=== PATIENT | female | born 1990 | race Caucasian/White ===

== ENCOUNTER → 2023-05-04 15:16 | Outpatient (CLI) | payer OTHER, SELFPAY ==
--- NOTE | ~2023-05-04 | US_ITS ---
EXAMINATION: US OB <=14 wk fetus w TV INDICATION: confirmation of viability TECHNIQUE: Sonography of the pelvis was performed by transabdominal and transvaginal techniques. COMPARISON: None. RESULT: Uterus: 9.5 x 5.7 x 6.8 cm. Homogenous myometrium. Intrauterine gestational sac: Single present. Yolk sac: 0.5 cm . Embryo: Single present. [place] rump length: 2.0 cm, corresponding gestational age 8 weeks, 4 days. G estational heart rate: present 190 bpm. Subgestational hematoma: Absent . Right ovary: 2.3 x 1.0 x 2.3 cm. Vascular flow is present. No adnexal mass. Left ovary: 2.5 x 1.3 x 2.5 cm. Vascular flow is present. No adnexal mass. Pelvis free fluid: None. IMPRESSION: Single, live intrauterine gestation. Estimated Gestational Age: 8 weeks, 4 days by crown rump length. LEOPOLDO by ultrasound 12/10/2023. tachycardia, up to 190 bpm. Reviewed, dictated and finalized at location K. AURANT SERVICE MANAGER IMPRESSION: Single, live intrauterine gestation. Estimated Gestational Age: 8 weeks, 4 days by crown rump length. LEOPOLDO by ultras ound 12/10/2023. tachycardia, up to 190 bpm.
== END ==
PROVIDERS: PCP Advanced Practice Midwife; Visit Provider Advanced Practice Midwife
DX: O36.8390 Maternal care for abnormalities of the fetal heart rate or rhythm, unspecified trimester, not applicable or unspecified (principal); O36.80X0 Pregnancy with inconclusive fetal viability, not applicable or unspecified; Z3A.00 Weeks of gestation of pregnancy not specified
CPT/HCPCS: 76801; 76817

== ENCOUNTER → 2023-07-16 08:47 | Outpatient (CLI) | payer OTHER, SELFPAY ==
--- NOTE | ~2023-07-16 | US_ITS ---
EXAMINATION: US OB /maternal detail DATE: 07/16/2023 09:29 INDICATION: survey TECHNIQUE: Multiple obstetric sonographic images performed. FINDINGS: Comparison ultrasound dated 05/04/2023 There is a single living fetus in breech presentation. The placenta is anterior without placenta pre via. Placental margin to 6 cm from the cervix. Cervical length 4 cm. Amniotic fluid volume is subject ively normal. cardiac activity and movement is noted with a heart rate of 156 beats per minute. The following anatomy was identified as normal: 4 chamber heart 3 vessel cord cord insertion kidneys urinary bladder stomach spine diaphragm ventricles cisterna magna cerebellum The following biometric data were obtained: BPD: 43mm corresponds to gestational age 19 weeks 0 days. Head circumference: 163 mm corresponds to gestational age 19 weeks 0 days. Abdominal circumference: 135 mm corresponds to gestational age 19 weeks 0 days. Femur length: 27 mm corresponds to gestational age 18 weeks 2 days. Head circumference to abdominal circumference ratio: 1.2 (normal range for expected gestational age i s 1.09-1.26). Estimated weight: 250 to grams +/- 38 grams using Hadlock method, 29%. IMPRESSION: 1: Single living intrauterine with an estimated gestational age of 19weeks 0days by initial ultrasound measurements, with an EDC of 12/10/2023 in breech presentation. 2. Normal survey. Reviewed, dictated and finalized at location A. ER HELPER IMPRESSION: 1: Single living intrauterine with an estimated gestational age of 19 weeks 0days by initial ultrasound measurements, with an EDC of 12/10/2023 in rudy ech presentation. 2. Normal survey.
== END ==
PROVIDERS: PCP Advanced Practice Midwife; Visit Provider Advanced Practice Midwife
DX: Z36.9 Encounter for antenatal screening, unspecified (principal); Z3A.19 19 weeks gestation of pregnancy
CPT/HCPCS: 76805

== ENCOUNTER 2023-10-21 13:10 | Outpatient (CLI) | payer OTHER, SELFPAY ==
--- NOTE | ~2023-10-21 | US_ITS ---
EXAMINATION: US OB follow up DATE: 10/21/2023 13:47 INDICATION: Size less than dates. Third trimester. TECHNIQUE: Real-time ultrasound of the pelvis was performed. COMPARISON: Ultrasound 07/16/2023, 05/04/23 FINDINGS: There is a single living fetus in breech presentation. The placenta is anterior. The cervical length is 3.4 cm on transabdominal images, which is normal. heart rate is 157 beats per minute (bpm). The amniotic fluid index is 14.1 cm, which is normal. The following biometric data were obtained: Biparietal diameter (BPD): 8.1 cm; head circumference (HC): 31.0 cm; abdominal circumference (AC): 27 .8 cm; femur length (FL): 6.1 cm. These measurements are concordant. Estimated weight is 1894 g +/- 284 g, which correlates with the 19th percentile when 12/10/23 is used as estimated date of delivery. As single measurements, these parameters are each equal to the following estimated gestational ages: BPD: 32 weeks 4 days. HC: 34 weeks 4 days. AC: 31 weeks 6 days. FL: 31 weeks 4 days. estimated gestational age based solely on measurements from this exam is 32 weeks 5 days +/- 2 weeks 2 days. IMPRESSION: 1. Single living fetus in breech presentation. 2. Estimated weight is 1894 g +/- 284 g, which correlates with the 19th percentile when 4 is used as estimated date of delivery. This date was set by ultrasound on 05/04/2023. Reviewed, dictated and finalized at location E. IMPRESSION: 1. Single living fetus in breech presentation. 2. Estimated weight is 1894 g +/- 284 g, which correlates with the 19th percentile when 12/10/23 is used as estimated date of delivery. This date was se t by ultrasound on 05/04/2023.
== END 2023-10-21 13:11 ==
PROVIDERS: PCP Advanced Practice Midwife; Visit Provider Advanced Practice Midwife
DX: O36.5930 Maternal care for other known or suspected poor fetal growth, third trimester, not applicable or unspecified (principal)
CPT/HCPCS: 76816

== ENCOUNTER 2023-11-08 17:03 | Outpatient (CLI) | payer OTHER, SELFPAY ==
[2023-11-08 17:27] VITALS: BP 140/85; PULSE 88
[2023-11-08 17:30] VITALS: BP 131/78; PULSE 80
[2023-11-08 17:31] VITALS: BMI 30.8
[2023-11-08 17:34] LABS: Basophils Percent Auto 0.2 % (0.2-1.2); Eosinophils Absolute Auto 0.1 K/mm3 (0-0.3); Eosinophils Percent Auto 0.6 % (0-4.4); Hematocrit 38.6 % (37.0-47.0); Hemoglobin 13.3 g/dL (12.0-15.0); Immature Granulocyte Absolute 0.14 K/mm3 (0.00-0.031); Immature Granulocyte Percent A 1.3 % (0-0.5); Lymphocytes Absolute Auto 1.47 K/mm3 (0.9-3.2); Lymphocytes Percent Auto 13.8 % (18.3-44.2); Mean Corpuscular HGB Conc 34.5 g/dl (32-36); Mean Corpuscular Hemoglobin 30.8 pg (26-34); Mean Corpuscular Volume 89.4 fl (80-100); Mean Platelet Volume 11.1 fl (7.4-10.4); Monocytes Absolute Auto 0.6 K/mm3 (0.1-0.6); Monocytes Percent Auto 5.5 % (2.6-8.5); Neutrophils Absolute Auto 8.4 K/mm3 (1.3-6.7); Neutrophils Percent Auto 78.6 % (45.5-73.1); Platelet Count Result 156 k/mm3 (150-375); Red Blood Count 4.32 M/mm3 (4.2-5.4); White Blood Count 10.7 K/mm3 (4.5-10.0)
[2023-11-08 17:35] LABS: Appearance Urine Clear (Clear); Bilirubin Urine Negative (Negative); Blood Urine Negative (Negative); Color Urine Yellow (Yellow); Glucose Urine UA Negative (Negative); Ketones Urine Negative (Negative); Leukocyte Esterase Ur Negative LEU/UL (Negative); Nitrate Urine Negative (Negative); Protein Urine Negative (Negative); Specific Grav Ur 1.006 (1.001-1.035); Urobilinogen Urine 0.2 mg/dL (<2.0); pH Urine 7.5 (5.0-9.0)
[2023-11-08 17:41] LABS: Add Urine Microscopic? NO
[2023-11-08 17:43] LABS: Alanine Aminotransferase 22 U/L (6-35); Albumin Level 3.9 g/dL (3.5-5.1); Alkaline Phosphatase 106 U/L (38-126); Anion Gap 8 mmol/L (4-12); Aspartate Amino Transferase 24 U/L (14-36); Bilirubin,Total 0.3 mg/dL (0.2-1.3); Blood Urea Nitrogen 12 mg/dL (7-17); Calcium 9.2 mg/dL (8.4-10.2); Carbon Dioxide 22 mmol/L (22-30); Chloride 106 mmol/L (98-107); Creatinine Urine 20.1 mg/dL; Estimated CRCL calculation 130 ml/min; Estimated Glomerular Filt Rate > 60; Glucose 81 mg/dL (65-110); Potassium 3.9 mmol/L (3.4-5.0); Sodium 136 mmol/L (137-145); Total Protein Urine Random 10 mg/dL
[2023-11-08 17:45] VITALS: BP 118/81; PULSE 81
[2023-11-08 18:00] VITALS: BP 122/85; PULSE 82
[2023-11-08 18:10] VITALS: BP 122/85; PULSE 86
== END 2023-11-08 18:13 | disposition home or self-care (01) ==
LOC: ANHOBOP 17:07 → ANHLDR 17:11
PROVIDERS: PCP Nurse Practitioner Family; Visit Provider Obstetrics & Gynecology Gynecology
DX: O13.9 Gestational [pregnancy-induced] hypertension without significant proteinuria, unspecified trimester (principal); Z3A.00 Weeks of gestation of pregnancy not specified
CPT/HCPCS: 36415; 59025; 80053; 81003; 82570; 84156; 84550; 85025; 99199

== ENCOUNTER 2023-11-09 17:21 | Outpatient (CLI) | payer OTHER, SELFPAY ==
[2023-11-09 17:57] VITALS: BMI 31.0
[2023-11-09 18:17] LABS: Collection Time Urine 24 HOURS
[2023-11-09 18:25] LABS: Patient Weight 169 Lbs; Total Volume 24 Hour Urine 3000 ml
[2023-11-09 18:26] LABS: Total Volume 24 Hour Urine 3000 ml
[2023-11-09 18:34] LABS: Specific Gravity Ur 1.012
[2023-11-09 18:41] LABS: Total Protein Urine 24 Hr 330 mg/24hr (28-141); Total Protein Urine Random 11 mg/dL
[2023-11-09 18:42] LABS: Creatinine Clearance Urine 200.4 ml/min (75-125); Creatinine Urine 49.3 mg/dL
== END 2023-11-09 17:22 | disposition home or self-care (01) ==
LOC: ANHOBOP 17:27
PROVIDERS: PCP Nurse Practitioner Family; Visit Provider Obstetrics & Gynecology Gynecology
DX: Z34.90 Encounter for supervision of normal pregnancy, unspecified, unspecified trimester (principal); Z3A.00 Weeks of gestation of pregnancy not specified
CPT/HCPCS: 81050; 82575; 84156

== ENCOUNTER 2023-11-17 10:22 | Outpatient (RCR) | payer OTHER, SELFPAY ==
[2023-11-11 09:40] VITALS: BP 125/92; PULSE 97
[2023-11-14 10:53] VITALS: BP 123/82; PULSE 88
[2023-11-17 10:58] VITALS: BP 133/87; PULSE 88
== END 2024-01-11 08:27 | disposition home or self-care (01) ==
LOC: ANHOBOP 10:22
PROVIDERS: PCP Nurse Practitioner Family; Visit Provider Obstetrics & Gynecology Gynecology
DX: O14.93 Unspecified pre-eclampsia, third trimester (principal); Z3A.35 35 weeks gestation of pregnancy; O24.419 Gestational diabetes mellitus in pregnancy, unspecified control; Z3A.36 36 weeks gestation of pregnancy
CPT/HCPCS: 59025

== ENCOUNTER 2023-11-20 15:58 | Inpatient (IN) | payer OTHER, SELFPAY ==
[2023-11-20] VITALS (27 sets, daily range): BP systolic 103–138; BP diastolic 58–96; PULSE 71–101; TEMP 36.2–36.8; BMI 30.6
[2023-11-20 17:01] LABS: Basophils Percent Auto 0.2 % (0.2-1.2); Eosinophils Absolute Auto 0.1 K/mm3 (0-0.3); Eosinophils Percent Auto 0.5 % (0-4.4); Hematocrit 38.3 % (37.0-47.0); Hemoglobin 13.4 g/dL (12.0-15.0); Immature Granulocyte Absolute 0.13 K/mm3 (0.00-0.031); Immature Granulocyte Percent A 1.1 % (0-0.5); Immature Platelet Fraction Pct 9.2 % (0.9-11.2); Lymphocytes Absolute Auto 1.46 K/mm3 (0.9-3.2); Lymphocytes Percent Auto 12.6 % (18.3-44.2); Mean Corpuscular Hemoglobin 30.9 pg (26-34); Mean Corpuscular Volume 88.2 fl (80-100); Mean Platelet Volume 12.1 fl (7.4-10.4); Monocytes Absolute Auto 0.8 K/mm3 (0.1-0.6); Monocytes Percent Auto 6.4 % (2.6-8.5); Neutrophils Absolute Auto 9.2 K/mm3 (1.3-6.7); Neutrophils Percent Auto 79.2 % (45.5-73.1); Platelet Count Result 155 k/mm3 (150-375); Red Blood Count 4.34 M/mm3 (4.2-5.4); Red Cell Distribution Width 12.8 % (11.5-14.5); White Blood Count 11.6 K/mm3 (4.5-10.0)
[2023-11-20] MEDS: miSOPROStol 25 MCG TABLET BUCCAL (17:01)
[2023-11-20 17:09] LABS: Alanine Aminotransferase 18 U/L (6-35); Albumin Level 3.9 g/dL (3.5-5.1); Alkaline Phosphatase 111 U/L (38-126); Anion Gap 6 mmol/L (4-12); Aspartate Amino Transferase 19 U/L (14-36); Bilirubin,Total 0.3 mg/dL (0.2-1.3); Blood Urea Nitrogen 14 mg/dL (7-17); Calcium 9.4 mg/dL (8.4-10.2); Carbon Dioxide 21 mmol/L (22-30); Chloride 109 mmol/L (98-107); Estimated CRCL calculation 130 ml/min; Estimated Glomerular Filt Rate > 60; Glucose 84 mg/dL (65-110); Potassium 3.7 mmol/L (3.4-5.0); Sodium 136 mmol/L (137-145); Uric Acid 3.4 mg/dL (2.5-7.5)
[2023-11-20 17:14] LABS: Platelet Estimate Adequate (Adequate); Schistocytes None Seen
--- NOTE | 2023-11-20 17:18 | LDADM ---
This patient, Heavenly Torres, was admitted to Labor/Delivery/Recovery 106 on 11/20/23 at 15:58. Plans for labor, pain management and were discussed with patient. Patient/family oriented to hospital policies and general routines including ID bracelet, bed and alarms, visiting hours, pain management, procedures, bathroom and other care routines, personal items, smoking policy, room service/diet and guest tray routines, infant security routines, and visiting hours. Patient/Family are encouraged to report perceived risks to care and to ask questions if they do not understand what they are told or what they should do. See OBIX for further documentation.
[2023-11-20 17:50] LABS: HIV 1/2 Ab P24 Ag Result Negative (Negative)
[2023-11-20] MEDS: miSOPROStol 25 MCG TABLET 50 MCG BUCCAL (21:12)
[2023-11-20 21:19] LABS: Glucose Point of Care 112 mg/dl (65-105)
[2023-11-21] VITALS (52 sets, daily range): BP systolic 93–147; BP diastolic 58–96; PULSE 63–93; RESP 11–23; TEMP 36.1–36.9; O2SAT 97–100
[2023-11-21] MEDS: miSOPROStol 25 MCG TABLET 50 MCG BUCCAL ×2 (01:23→07:05)
[2023-11-21] MEDS: ACETAMINOPHEN 500 MG TABLET 1000 MG PO ×2 (03:30→10:03)
--- NOTE | 2023-11-21 05:46 | WPDANESEPP ---
Anes - Eval Pre Procedure Procedure: Labor Epidural Date/Time: 11/21/23 05:46 Surgeon: Charlette Preop Diagnosis: Labor Pain Pre Op Diagnosis: IOL Patient Data Age: 33 Gender: F Height: 1.57 m Weight: 76 kg Last Vital Signs Temp 36.4 C 11/21/23 01:22 Pulse 73 11/21/23 05:30 BP 119/75 11/21/23 05:30 O2 Del Method Room Air 11/20/23 17:13 Allergies Allergy/AdvReac Type Severity Reaction Status Date / Time No Known Allergies Allergy Verified 11/20/23 16:56 Home Medications Medication Instructions Recorded Confirmed Type ergocalciferol (vitamin D2) 1,250 See Rx Instructions .Route .COMPLEX 11/15/23 11/17/23 History mcg (50,000 unit) capsule vits no.126-ferrous fum 1 tablet PO DAILY 11/15/23 11/17/23 History 28 mg iron-folic acid 800 mcg tablet (Classic ) aspirin 81 mg capsule 81 mg PO DAILY 11/20/23 11/20/23 History docusate sodium 50 mg capsule 50 mg PO DAILY 11/20/23 11/20/23 History Laboratory Tests 11/20/23 11/20/23 11/20/23 16:51 16:51 21:14 WBC 11.6 H K/mm3 (4.5-10.0) RBC 4.34 M/mm3 (4.2-5.4) Hgb 13.4 g/dL (12.0-15.0) Hct 38.3 % (37.0-47.0) MCV 88.2 fl (80-100) MCH 30.9 pg (26-34) MCHC 35.0 g/dl (32-36) RDW 12.8 % (11.5-14.5) Plt Count 155 k/mm3 (150-375) MPV 12.1 H fl (7.4-10.4) Immature Gran % (Auto) 1.1 H % (0-0.5) Neut % (Auto) 79.2 H % (45.5-73.1) Lymph % (Auto) 12.6 L % (18.3-44.2) [place] % (Auto) 6.4 % (2.6-8.5) Eos % (Auto) 0.5 % (0-4.4) Baso % (Auto) 0.2 % (0.2-1.2) Lymph # (Auto) 1.46 K/mm3 (0.9-3.2) [place] # (Auto) 0.8 H K/mm3 (0.1-0.6) Eos # (Auto) 0.1 K/mm3 (0-0.3) Baso # (Auto) 0.0 K/mm3 (0.0-0.1) Abs Immat Gran (auto) 0.13 H K/mm3 (0.00-0.031) Absolute Neuts (auto) 9.2 H K/mm3 (1.3-6.7) Absolute Nucleated RBC 0.000 K/mm3 (0.0-0.012) Nucleated RBC % 0.0 % (0.0-0.2) Platelet Estimate Adequate (Adequate) % Immature Plt Fraction 9.2 % (0.9-11.2) Schistocytes None seen Sodium 136 L mmol/L (137-145) Potassium 3.7 mmol/L (3.4-5.0) Chloride 109 H mmol/L (98-107) Carbon Dioxide 21 L mmol/L (22-30) Anion Gap 6 mmol/L (4-12) BUN 14 mg/dL (7-17) Creatinine 0.50 L mg/dL (0.7-1.0) Estim Creat Clear Calc 130 ml/min Estimated GFR > 60 (59 - ) Glucose 84 mg/dL (65-110) POC Capillary Glucose 112 H mg/dl (65-105) Uric Acid 3.4 mg/dL Cancelled (2.5-7.5) Calcium 9.4 mg/dL (8.4-10.2) Total Bilirubin 0.3 mg/dL (0.2-1.3) AST 19 U/L (14-36) ALT 18 U/L (6-35) Alkaline Phosphatase 111 U/L (38-126) Total Protein 7.0 g/dL (6.3-8.2) Albumin 3.9 g/dL (3.5-5.1) RPR Pending HIV 1&2 Ab/P24 Ag 4thGn Negative (Negative) Blood Type O Positive Antibody Screen Negative : gestational age (, LEOPOLDO 12/10/23) Patient hx anesthesia problems: none Family hx anesthesia problems: none Results Review: All pre-operative results and documents have been reviewed as part of the pre-operative evaluation. PMFSH Family History Family History Other No pertinent family history Social History Social History Smoking status: Never smoker Substance use: never Do You Feel Safe in your Home?: Yes Lack of Transportation: No Lack of Food: Never True Current Housing: I Do Not Have Housing Concerned About Future Housing: No Difficulty Paying Gas/Electric Bills: No Di
[2023-11-21] MEDS: LACTATED RINGERS 1,000 ML 125 ML IV CONT ×3 (06:36→11:30)
[2023-11-21 06:37] LABS: Glucose Point of Care 83 mg/dl (65-105)
--- NOTE | 2023-11-21 08:15 | PM.IMHP ---
H&P: HPI History of Present Illness Date/Time: 11/21/23 0745 Chief Complaint: Breech presentation Narrative: 33 y.o. Preeclampsia GDMA1 Rubella Non-Immune Review of Systems Review of Systems: All systems reviewed & are unremarkable except as noted in HPI and below PMFSH Family History Family History Other No pertinent family history Social History Social History Smoking status: Never smoker Substance use: never Do You Feel Safe in your Home?: Yes Lack of Transportation: No Lack of Food: Never True Current Housing: I Do Not Have Housing Concerned About Future Housing: No Difficulty Paying Gas/Electric Bills: No Difficulty Paying for Meds: No Currently Unemployed: No Education: Master's Degree or Higher Difficulty w/ Childcare or Family Care: No Spiritual care concerns: No Meds Home Medications and Allergies Home Medications Medication Instructions Recorded Confirmed Type ergocalciferol (vitamin D2) 1,250 See Rx Instructions .Route .COMPLEX 11/15/23 11/17/23 History mcg (50,000 unit) capsule vits no.126-ferrous fum 1 tablet PO DAILY 11/15/23 11/17/23 History 28 mg iron-folic acid 800 mcg tablet (Classic ) aspirin 81 mg capsule 81 mg PO DAILY 11/20/23 11/20/23 History docusate sodium 50 mg capsule 50 mg PO DAILY 11/20/23 11/20/23 History Allergies Allergy/AdvReac Type Severity Reaction Status Date / Time No Known Allergies Allergy Verified 11/20/23 16:56 Vital Signs Vital Signs - 24 hr 11/20/23 16:18 11/20/23 16:30 11/20/23 16:45 Temperature Pulse Rate 101 H 97 90 Blood Pressure 132/90 135/96 H 133/87 Oxygen Delivery 11/20/23 17:00 11/20/23 17:15 11/20/23 17:30 Temperature Pulse Rate 84 92 96 Blood Pressure 133/94 H 138/88 136/92 H Oxygen Delivery 11/20/23 17:45 11/20/23 16:17 11/20/23 18:00 Temperature 98.3 F Pulse Rate 90 83 Blood Pressure 128/94 H 123/84 Oxygen Delivery 11/20/23 18:15 11/20/23 18:30 11/20/23 18:45 Temperature Pulse Rate 89 86 89 Blood Pressure 129/84 121/80 121/73 Oxygen Delivery 11/20/23 19:00 11/20/23 19:15 11/20/23 19:30 Temperature Pulse Rate 84 85 91 Blood Pressure 114/75 126/73 121/74 Oxygen Delivery 11/20/23 19:45 11/20/23 20:00 11/20/23 20:15 Temperature Pulse Rate 86 87 87 Blood Pressure 123/73 110/75 115/77 Oxygen Delivery 11/20/23 20:30 11/20/23 20:45 11/20/23 21:00 Temperature Pulse Rate 92 89 89 Blood Pressure 116/76 118/68 117/79 Oxygen Delivery 11/20/23 21:30 11/20/23 22:00 11/20/23 22:30 Temperature 97.2 F L Pulse Rate 83 80 78 Blood Pressure 121/80 118/81 112/70 Oxygen Delivery 11/20/23 23:00 11/20/23 23:30 11/21/23 00:00 Temperature 97.6 F Pulse Rate 78 71 75 Blood Pressure 110/63 103/58 L 128/91 H Oxygen Delivery 11/21/23 00:30 11/21/23 01:00 11/21/23 01:22 Temperature 97.6 F Pulse Rate 75 78 Blood Pressure 126/86 128/93 H Oxygen Delivery 11/21/23 01:30 11/21/23 02:00 11/21/23 02:30 Temperature Pulse Rate 79 70 81 Blood Pressure 122/86 130/90 123/85 Oxygen Delivery 11/21/23 03:00 11/21/23 03:30 11/21/23 04:00 Temperature Pulse Rate 78 78 75 Blood Pressure 133/92 H 93/58 L 129/86 Oxygen Delivery 11/21/23 04:30 11/21/23 05:00 11/21/23 05:30 Temperature 97.6 F Pulse Rate 82 81 73 Blood Pressure 112/72 115/87 119/75 Oxygen Delivery 11/21/23 06:00 11/21/23 06:30 11/21/23 07:00 Temperature Pulse Rate 72 87 79 Blood Pressure 126/89 117/84 127/80 Oxygen Delivery 11/20/23 16:16 11/20/23 17:13 Temperature 98.3 F Pulse Rate Blood Pressure Oxygen Delivery Room Air Exam Narrative: Adult female, Term Const: General: comfortable and no acute distress HENMT: Mouth: Yes mois
--- NOTE | 2023-11-21 08:22 | WPDOBADMIT ---
Obstetrics - Admit Note Admission Note: record reviewed. No pertinent additions to the history and/or any subsequent changes in the physical findings that are not consistent with the expected course of the were found. Additions to the history and/or subsequent changes in the physical findings follow. Admitted 11/20/23 for IOL due to preeclampsia
--- NOTE | 2023-11-21 08:23 | PM.OBPNLAB ---
Pain Control Date/time seen: 11/21/23 0792 Pain control: tolerating well Comments: CNM called by RN at 0538. RN reports cervix still long/thick. RN stated os was 1cm but she was unable to peel through the internal os. Additional 50mcg Cytotec ordered. Feeling occasional cramping sensation. Sitting upright in bed eating breakfast. Pelvic Exam Comments: SVE performed. Cervix extremely posterior. Unable to palpate external os entirely. Contractions Monitor mode: External Contraction pattern: Irregular Contraction intensity: Mild Status status: Category ll Assessment and Plan Comments: CNM to bedside. Discussed plan of care. SVE performed. Unable to plapate os. Firm presenting part in lower uterine segment. Leopolds maneuver performed. head suspected in LUQ. Limited bedside ultrasound performed. head in LUQ. spine towards maternal right side. +breathing motion observed. Breech presentation discussed with pt and family. Discussed plan of care and recommendation for delivery. Discussed risks, benefits, and expectations. Dr. Ovalles notified.
--- NOTE | 2023-11-21 10:12 | WPDANESEPPF ---
Anes - Initial Pre Proc Eval Date/Time: 11/21/23 10:12 Surgeon: Selene Ovalles MD Pre Op Diagnosis: IOL Patient Data Age: 33 Gender: F Height: 1.57 m Weight: 76 kg Last Vital Signs Temp 36.4 C 11/21/23 05:00 Pulse 85 11/21/23 10:00 BP 147/96 H 11/21/23 10:00 O2 Del Method Room Air 11/20/23 17:13 Allergies Allergy/AdvReac Type Severity Reaction Status Date / Time No Known Allergies Allergy Verified 11/20/23 16:56 Home Medications Medication Instructions Recorded Confirmed Type ergocalciferol (vitamin D2) 1,250 See Rx Instructions .Route .COMPLEX 11/15/23 11/17/23 History mcg (50,000 unit) capsule vits no.126-ferrous fum 1 tablet PO DAILY 11/15/23 11/17/23 History 28 mg iron-folic acid 800 mcg tablet (Classic ) aspirin 81 mg capsule 81 mg PO DAILY 11/20/23 11/20/23 History docusate sodium 50 mg capsule 50 mg PO DAILY 11/20/23 11/20/23 History Laboratory Tests 11/20/23 11/20/23 11/20/23 16:51 16:51 21:14 WBC 11.6 H K/mm3 (4.5-10.0) RBC 4.34 M/mm3 (4.2-5.4) Hgb 13.4 g/dL (12.0-15.0) Hct 38.3 % (37.0-47.0) MCV 88.2 fl (80-100) MCH 30.9 pg (26-34) MCHC 35.0 g/dl (32-36) RDW 12.8 % (11.5-14.5) Plt Count 155 k/mm3 (150-375) MPV 12.1 H fl (7.4-10.4) Immature Gran % (Auto) 1.1 H % (0-0.5) Neut % (Auto) 79.2 H % (45.5-73.1) Lymph % (Auto) 12.6 L % (18.3-44.2) [place] % (Auto) 6.4 % (2.6-8.5) Eos % (Auto) 0.5 % (0-4.4) Baso % (Auto) 0.2 % (0.2-1.2) Lymph # (Auto) 1.46 K/mm3 (0.9-3.2) [place] # (Auto) 0.8 H K/mm3 (0.1-0.6) Eos # (Auto) 0.1 K/mm3 (0-0.3) Baso # (Auto) 0.0 K/mm3 (0.0-0.1) Abs Immat Gran (auto) 0.13 H K/mm3 (0.00-0.031) Absolute Neuts (auto) 9.2 H K/mm3 (1.3-6.7) Absolute Nucleated RBC 0.000 K/mm3 (0.0-0.012) Nucleated RBC % 0.0 % (0.0-0.2) Platelet Estimate Adequate (Adequate) % Immature Plt Fraction 9.2 % (0.9-11.2) Schistocytes None seen Sodium 136 L mmol/L (137-145) Potassium 3.7 mmol/L (3.4-5.0) Chloride 109 H mmol/L (98-107) Carbon Dioxide 21 L mmol/L (22-30) Anion Gap 6 mmol/L (4-12) BUN 14 mg/dL (7-17) Creatinine 0.50 L mg/dL (0.7-1.0) Estim Creat Clear Calc 130 ml/min Estimated GFR > 60 (59 - ) Glucose 84 mg/dL (65-110) POC Capillary Glucose 112 H mg/dl (65-105) Uric Acid 3.4 mg/dL Cancelled (2.5-7.5) Calcium 9.4 mg/dL (8.4-10.2) Total Bilirubin 0.3 mg/dL (0.2-1.3) AST 19 U/L (14-36) ALT 18 U/L (6-35) Alkaline Phosphatase 111 U/L (38-126) Total Protein 7.0 g/dL (6.3-8.2) Albumin 3.9 g/dL (3.5-5.1) RPR Pending HIV 1&2 Ab/P24 Ag 4thGn Negative (Negative) Blood Type O Positive Antibody Screen Negative 11/21/23 06:32 WBC RBC Hgb Hct MCV MCH MCHC RDW Plt Count MPV Immature Gran % (Auto) Neut % (Auto) Lymph % (Auto) [place] % (Auto) Eos % (Auto) Baso % (Auto) Lymph # (Auto) [place] # (Auto) Eos # (Auto) Baso # (Auto) Abs Immat Gran (auto) Absolute Neuts (auto) Absolute Nucleated RBC Nucleated RBC % Platelet Estimate % Immature Plt Fraction Schistocytes Sodium Potassium Chloride Carbon Dioxide Anion Gap BUN Creatinine Estim Creat Clear Calc Estimated GFR Glucose POC Capillary Glucose 83 mg/dl (65-105) Uric Acid
[2023-11-21 10:15] LABS: Glucose Point of Care 88 mg/dl (65-105)
--- NOTE | 2023-11-21 10:36 | WPDHPUPDATE1 ---
History and Physical Update Update Date/Time: 11/21/23 10:36 History and Physical has been reviewed, including an updated exam of the patient. There are NO changes in the patient's condition. Risks, benefits, and alternatives have been discussed and questions answered. Patient agrees to proceed with procedure.
[2023-11-21] MEDS: FAMOTIDINE 20 MG/2 ML VIAL IV PUSH (10:39)
[2023-11-21] MEDS: ONDANSETRON INJ 4 MG/2 ML VIAL IV PUSH (10:40)
[2023-11-21] MEDS: ceFAZolin 2 GM/D5W 50 ML 2 GM/50 ML BAG IVPB (11:02)
--- NOTE | 2023-11-21 11:47 | W.PM.OBCSD ---
OB - Delivery Note Procedure Delivery date: 11/21/23 Pre-op diagnosis: Breech Presentation, Gestational Diabetes (GDMA1) and Preeclampsia w/o severe features Post-op Diagnosis: Same Induction method: Per Misoprostol Protocol Delivery monitor: External FHT and External Uterine Procedure Performed: Primary Primary branch: low cervical, transverse Surgeon: Selene Ovalles MD Anesthesia type: Spinal Description of Procedure/Findings: The patient is taken to operating room and placed under spinal anesthesia in the dorsal supine position with leftward tilt. Once anesthesia was deemed adequate, she was prepped and draped in the usual sterile fashion. A Pfannenstiel skin incision was made with a scalpel and carried down to the underlying layer of fascia which was nicked in the midline. The incision was extended laterally using Ramirez scissors. Bleeding vessels in the subcutaneous tissue are cauterized for hemostasis. The Ochs[place] are used to tent the fascia which was then dissected off the sharp and blunt dissection. The rectus muscles are in the midline and the peritoneum entered with a Peon. The incision was extended with blunt traction. The bladder blade is placed. The vesicouterine peritoneum was tented and entered with Metzenbaum scissors and extended laterally. The bladder flap was created digitally and the bladder blade replaced. The lower uterine segment was incised in a transverse fashion with the scalpel. Clear fluid is noted. The infant's right foot is presenting. The 's left leg is straight. Therefore the 's hips were grasped and delivered through the incision to the scapula. Both legs delivered spontaneously. The infant's right arm was splinted and delivered. The was rotated and the left arm was splinted and delivered. The was extended on the abdomen and head delivered spontaneously. After 1minute delayed cord clamping the cord was clamped and cut and the infant handed to the waiting nursery nurse. While attempting to deliver the placenta spontaneously the cord avulsed. Therefore the placenta was removed manually. The uterus was cleared of all clots and debris and exteriorized. The uterine incision was closed using 0 Monocryl in a running fashion. Same suture was used to imbricate. Good hemostasis is noted. The cul-de-sac is irrigated and the uterus returned to the abdomen. The gutters were irrigated. The incision was again inspected noted to be hemostatic. The fascia was closed using 0 Vicryl in a running fashion. Subcutaneous tissues irrigated made hemostatic using Bovie cautery. Skin is closed using 4-0 Vicryl in a subcuticular fashion. Dermaflex was placed over the incision. Sponge, needle, and instrument counts are correct per the OR staff. Patient was given Ancef prior to incision. Patient was taken to recovery in stable condition. Specimen: Yes ( Placenta) Estimated Blood Loss: 440 Drains: Yes ( Li catheter) Packing: No Complications: No immediate complications Condition: Stable Disposition: Floor [place] Baby Date of : 11/21/23 Weeks of gestation at delivery: 37 Infant gender: Female Weight (pounds): 5 Weight (ounces): 5 presentation: breech position: Left Sacrum Posterior Placenta delivery description: Manual Removal Cord Vessel Description: 3 Vessels and Delayed Cord Clamping score one minute: 9 score five minutes: 9
--- NOTE | 2023-11-21 11:56 | PM.OBDSVD ---
DS: Admitting Diagnosis Discharge Date 11/25/23 Admitting Diagnosis intrauterine at 37 weeks preeclampsia GDMA1 medical induction of labor found to be breech presentation DS: Discharge Diagnosis Discharge Diagnosis (1) Delivery of first by section using transverse incision of lower segment of uterus: Code(s): O82 - Encounter for delivery without indication Status: Acute (2) Preeclampsia: Code(s): O14.90 - Unspecified pre-eclampsia, unspecified trimester Status: Acute (3) GDM, class A1: Code(s): O24.410 - Gestational diabetes mellitus in , diet controlled Status: Acute OB - DS: Summary OB Procedures : NST and PIH Mgmt OB Procedures Intrapartum: low cervical, transverse OB Procedures: : None Peripartum Data Delivery Method: Section Procedures: Procedures Operation Date: 11/21/23 11:15 <No data on this case meets the specified criteria> complications: none Status at Discharge Functional status at discharge: independent ambulation Overall status at discharge: patient is progressing back to baseline Time Spent with Patient Time attestation: Total time spent providing and/or coordinating discharge services: DS: Data Data Completed and Pending Labs on day of discharge: Labs from last 24 hours 11/21/23 11/21/23 11/20/23 10:06 06:32 21:14 WBC RBC Hgb Hct MCV MCH MCHC RDW Plt Count MPV Immature Gran % (Auto) Neut % (Auto) Lymph % (Auto) [place] % (Auto) Eos % (Auto) Baso % (Auto) Lymph # (Auto) [place] # (Auto) Eos # (Auto) Baso # (Auto) Abs Immat Gran (auto) Absolute Neuts (auto) Absolute Nucleated RBC Nucleated RBC % Platelet Estimate % Immature Plt Fraction Schistocytes Sodium Potassium Chloride Carbon Dioxide Anion Gap BUN Creatinine Estim Creat Clear Calc Estimated GFR Glucose POC Capillary Glucose 88 83 112 H Uric Acid Calcium Total Bilirubin AST ALT Alkaline Phosphatase Total Protein Albumin RPR HIV 1&2 Ab/P24 Ag 4thGn Blood Type Antibody Screen 11/20/23 11/20/23 16:51 16:51 WBC 11.6 H RBC 4.34 Hgb 13.4 Hct 38.3 MCV 88.2 MCH 30.9 MCHC 35.0 RDW 12.8 Plt Count 155 MPV 12.1 H Immature Gran % (Auto) 1.1 H Neut % (Auto) 79.2 H Lymph % (Auto) 12.6 L [place] % (Auto) 6.4 Eos % (Auto) 0.5 Baso % (Auto) 0.2 Lymph # (Auto) 1.46 [place] # (Auto) 0.8 H Eos # (Auto) 0.1 Baso # (Auto) 0.0 Abs Immat Gran (auto) 0.13 H Absolute Neuts (auto) 9.2 H Absolute Nucleated RBC 0.000 Nucleated RBC % 0.0 Platelet Estimate Adequate % Immature Plt Fraction 9.2 Schistocytes None seen Sodium 136 L Potassium 3.7 Chloride 109 H Carbon Dioxide 21 L Anion Gap 6 BUN 14 Creatinine 0.50 L Estim Creat Clear Calc 130 Estimated GFR > 60 Glucose 84 POC Capillary Glucose Uric Acid Cancelled 3.4 Calcium 9.4 Total Bilirubin 0.3 AST 19 ALT 18 Alkaline Phosphatase 111 Total Protein 7.0 Albumin 3.9 RPR Pending HIV 1&2 Ab/P24 Ag 4thGn Negative Blood Type O Positive Antibody Screen Negative Discharge Plan Discharge Attending physician on discharge: Selene Ovalles Discharging Clinician: Selene Ovalles Anticipated Discharge Date/Time: 11/24/23 11:58 Patient Disposition: Home, Self-Care Activity: may shower and pelvic rest Diet: regular Wound Care Instructions: incision open to air Patient Instructions: Antibiotic Form Stand Alone Forms: General Discharge Information Follow-up/Referrals: Selene Ovlales MD [Physician] - 1 Week ( and 6 week) Discharge Medications: Continued ergocalciferol (vitamin D2) 1,250 mcg (50,000 unit) capsule See Rx Instructions .ROUTE
--- NOTE | 2023-11-21 12:42 | PC.NURSE ---
heart tones obtained in OR after spinal placement. FHT 150 at 1112. Proceeded to prep patient routinely.
[2023-11-21 14:00] LABS: Rapid Plasma Reagin Non-Reactive (NonReactive)
[2023-11-21] MEDS: HYDROcodone/acetaminophen (*CRX) 5-325 MG TABLET 1 TAB PO ×2 (14:07→19:26)
[2023-11-21] MEDS: OXYTOCIN 30 UNITS/NS 500 ML 30 UNITS/500 ML BAG 125 UNITS IV CONT (14:08)
--- NOTE | 2023-11-21 16:22 | OBPPTRN ---
1416 Patient transferred to post room #281 via stretcher.. Support person present. Oriented to unit, room, information board, rooming in, admission packet and security measures. Patient verbalizes understanding.
[2023-11-21] MEDS: KETOROLAC 15 MG/ML VIAL (*BKC) IV PUSH ×2 (16:30→22:25)
[2023-11-21] MEDS: ACETAMINOPHEN 325 MG TABLET 650 MG PO ×2 (16:31→22:28)
[2023-11-21] MEDS: LIDOCAINE 5% PATCH 1 PATCH TRANSDERM (16:31)
[2023-11-21] MEDS: DOCUSATE SODIUM 100 MG CAPSULE PO (19:26)
[2023-11-21] MEDS: SIMETHICONE 80 MG TAB.CHEW PO (19:26)
[2023-11-21] MEDS: DEXTROSE 5%/0.45% SOD CHL 1,000 ML 125 ML IV CONT (20:26)
[2023-11-22] VITALS: BP 109/74; PULSE 84; RESP 15; TEMP 36.8; O2SAT 99
[2023-11-22 04:00] VITALS: BP 137/90; PULSE 77; RESP 16; TEMP 36.7; O2SAT 100
[2023-11-22] MEDS: HYDROcodone/acetaminophen (*CRX) 5-325 MG TABLET 1 TAB PO (04:15)
[2023-11-22] MEDS: ACETAMINOPHEN 325 MG TABLET 650 MG PO ×4 (04:17→22:58)
[2023-11-22] MEDS: KETOROLAC 15 MG/ML VIAL (*BKC) IV PUSH (04:18)
--- NOTE | 2023-11-22 07:35 | WPDANLDPN2 ---
Anes-Prog Note L&D Date/Time: 11/22/23 07:35 Comfortable throughout: section Neuraxial method: spinal Epidural/Spinal procedure site: tender Neuro status: Neuro function grossly intact. Cardiovascular status: normal Respiratory status: normal Airway patency: baseline Mental status: baseline Post-Op hydration status: normal Vital Signs: Last Vital Signs Temp 36.7 C 11/22/23 04:00 Pulse 77 11/22/23 04:00 Resp 16 11/22/23 04:00 BP 137/90 11/22/23 04:00 Pulse Ox 100 11/22/23 04:00 O2 Del Method Room Air 11/21/23 20:00 Pain score (VAS): 4/10 I/O: Intake & Output 11/21/23 11/21/23 11/22/23 15:59 23:59 07:59 Intake Total 9533 406 7895 Output Total 941 963 8435 Balance 935 40 200 Post-procedural complaints: none Patient feedback: Patient satisfied with anesthetic care.
--- NOTE | 2023-11-22 07:37 | WPDANLDNPN2 ---
Anes-Prog Note L&D-Neuraxial Date/Time: 11/22/23 07:37 Neuraxial medications: intrathecal PF morphine Opiod-related complaints: none Patient feedback: Patient satisfied with post-operative pain management.
--- NOTE | 2023-11-22 07:38 | PM.OBPNVD ---
OB - PN: Subj Subjective Date/time seen: 11/22/23 07:38 Patient comments: no complaints, pain well controlled and tolerating diet [place] baby status: doing well OB - PN: Obj Data Labs 11/20/23 16:51 11/20/23 16:51 Labs: Laboratory Results - last 24 hr 11/20/23 11/21/23 16:51 10:06 POC Capillary Glucose 88 RPR Non-reactive OB - PN A/P Plan day: 1 Plan: routine care Time Spent With Patient Time: Total time spent is greater than 50% in coordination of care (as documented) at patient's floor/unit and/or counseling patient: Exam Narrative: inc c/d/i : Bimanual exam- vagina & uterus: other (Uterus firm, nt @U)
[2023-11-22 07:45] VITALS: BP 114/78; PULSE 80; RESP 16; TEMP 37.1; O2SAT 99
[2023-11-22] MEDS: SIMETHICONE 80 MG TAB.CHEW PO ×3 (08:26→16:58)
[2023-11-22] MEDS: DOCUSATE SODIUM 100 MG CAPSULE PO ×2 (08:26→16:58)
[2023-11-22] MEDS: MULTIVIT/MIN/PREN/FOL AC/IRON TABLET 1 TAB PO (08:26)
--- NOTE | 2023-11-22 08:30 | PC.NURSE ---
Mother verbalizes she is able to independently latch with appropriate positioning and alignment. She denies consistent nipple discomfort, just some initial latch on tenderness and is responsively . is currently meeting outcomes for weight, output, jaundice, blood sugar and feeding frequencies of 8-12 times in 24 hours. Mother has latched to the left breast in cradle hold. suckles consistently with short pauses. is wrapped in a swaddle during feed and mother was encouraged to undress and place her skin to skin before feedings, especially if is sleepy. Mother is encouraged to call for assistance if her infant doesn?t latch, pain with latching, questions or concerns. Mother voiced understanding of information shared along with the mom/baby guide for an additional resource. Reported to the Primary RN.
[2023-11-22] MEDS: LORATADINE 10 MG TABLET PO (09:22)
--- NOTE | 2023-11-22 11:15 | PC.NURSE ---
Consulted with patient to assess needs related to . Discussed with mother waking the by unwrapping/undressing, supporting breast, protecting her nipples with an optimal deep latch, and good positioning. Encouraged understanding the benefits of skin to skin, responding to feeding cues, frequencies of feeding 8-12 times in 24 hours (approximately 2-3 hours), duration of feedings, milk production, intake/output feeding sheet and signs of adequate intake encouraging swallowing at the breast. Reviewed positioning and alignment, supporting breast, off-centered (asymmetrical latch) and leading with the chin with big, open, wide gape. Infant latched optimally to the [right] breast in [cradle] position. Education given to the mother of how to visualize the suckling (with good rocking jaw motion) swallows (dropping of the lower jaw) and how to listen for drinking at the breast (the ka sound). The was [able] to maintain latch without discomfort to mother. Resources used to facilitate learning were used from the [visual handouts/mom and baby guide]. Mother voiced understanding of the education shared, to call for assistance if the does not latch or if there is discomfort with . Reported to the Primary RN.
[2023-11-22] MEDS: IBUPROFEN 600 MG TABLET PO ×3 (11:36→22:57)
[2023-11-22 12:28] VITALS: BP 116/80; PULSE 89; RESP 16; TEMP 37.3; O2SAT 99
[2023-11-22 13:46] LABS: Basophils Percent Auto 0.4 % (0.2-1.2); Eosinophils Absolute Auto 0.1 K/mm3 (0-0.3); Eosinophils Percent Auto 0.5 % (0-4.4); Immature Granulocyte Absolute 0.11 K/mm3 (0.00-0.031); Lymphocytes Percent Auto 12.8 % (18.3-44.2); Mean Corpuscular HGB Conc 32.4 g/dl (32-36); Mean Corpuscular Hemoglobin 30.8 pg (26-34); Mean Corpuscular Volume 95.1 fl (80-100); Mean Platelet Volume 11.1 fl (7.4-10.4); Monocytes Absolute Auto 0.5 K/mm3 (0.1-0.6); Monocytes Percent Auto 4.9 % (2.6-8.5); Neutrophils Absolute Auto 8.8 K/mm3 (1.3-6.7); Neutrophils Percent Auto 80.4 % (45.5-73.1); Platelet Count Result 157 k/mm3 (150-375); Red Blood Count 3.89 M/mm3 (4.2-5.4); Red Cell Distribution Width 13.1 % (11.5-14.5); White Blood Count 10.9 K/mm3 (4.5-10.0)
[2023-11-22 16:20] VITALS: BP 112/75; PULSE 85; RESP 16; TEMP 37.1
[2023-11-22] MEDS: LIDOCAINE 5% PATCH 1 PATCH TRANSDERM (16:58)
[2023-11-22 20:00] VITALS: BP 119/90; PULSE 83; RESP 18; TEMP 37.2; O2SAT 99
[2023-11-23] VITALS (8 sets, daily range): BP systolic 119–142; BP diastolic 87–95; PULSE 74–100; RESP 16–18; TEMP 36.5–36.8; O2SAT 99–100
[2023-11-23] MEDS: ACETAMINOPHEN 325 MG TABLET 650 MG PO ×4 (04:56→22:50)
[2023-11-23] MEDS: IBUPROFEN 600 MG TABLET PO ×4 (04:57→22:50)
[2023-11-23] MEDS: SIMETHICONE 80 MG TAB.CHEW PO ×3 (07:47→16:50)
[2023-11-23] MEDS: DOCUSATE SODIUM 100 MG CAPSULE PO ×2 (07:47→16:50)
[2023-11-23] MEDS: MULTIVIT/MIN/PREN/FOL AC/IRON TABLET 1 TAB PO (07:48)
--- NOTE | 2023-11-23 08:00 | P.PNOB_ITS ---
OB - PN: Subj Subjective Date/time seen: 11/23/23 0740 Interval history: Doing well. Urinating without difficulty. Denies passing any large clots. Denies dizziness with ambulating. Tolerating po food and fluids. Bonding with infant. well. Patient comments: pain well controlled baby status: doing well and nursing well [place] feeding status: breast and bottle feeding OB - PN: Obj Data Labs 11/22/23 13:30 11/20/23 16:51 Labs: Laboratory Results - last 24 hr 11/22/23 13:30 WBC 10.9 H RBC 3.89 L Hgb 12.0 Hct 37.0 MCV 95.1 D MCH 30.8 MCHC 32.4 RDW 13.1 Plt Count 157 MPV 11.1 H Immature Gran % (Auto) 1.0 H Neut % (Auto) 80.4 H Lymph % (Auto) 12.8 L [place] % (Auto) 4.9 Eos % (Auto) 0.5 Baso % (Auto) 0.4 Lymph # (Auto) 1.40 [place] # (Auto) 0.5 Eos # (Auto) 0.1 Baso # (Auto) 0.0 Abs Immat Gran (auto) 0.11 H Absolute Neuts (auto) 8.8 H Absolute Nucleated RBC 0.000 Nucleated RBC % 0.0 OB - PN A/P Plan day: 2 Plan: routine care Time Spent With Patient Time: Total time spent is greater than 50% in coordination of care (as documented) at patient's floor/unit and/or counseling patient: Review of Systems Review of Systems: All systems reviewed & are unremarkable except as noted in HPI and below Exam Const: General: cooperative, no acute distress and awake Orientation/consciousness: patient oriented x3 Limitations: no limitations Resp: Effort & Inspection: normal respiratory effort and able to speak in complete sentences Auscultation: clear to auscultation bilaterally Cardio: Rate: regular rate Peripheral pulses: Peripheral pulses 2+ throughout GI: Inspection: normal to inspection Auscultation: normal bowel sounds : General: Yes bladder normal to palpation Speculum Exam - Vagina: vaginal bleeding Bimanual exam- vagina & uterus: bladder normal to palpation OB/external & speculum: vaginal bleeding Other: Fundus firm Skin: General skin exam: normal color Other: Incision C/D/I Neuro: General: patient oriented x3 Cognition (Neuro): normal cognition Speech: normal speech Extrem: General: normal to inspection Psych: Appearance: grossly normal Mental Status: mental status grossly normal Speech and movement: Normal speech and movement present Affect: normal affect Attitude: cooperative Thought process: Normal thought process present
--- NOTE | 2023-11-23 15:45 | PC.NURSE ---
1155. Consulted with patient to assess needs related to . Mother explains she is able to latch baby at time on her own but baby has been sleepy often and hard to wake at times. Discussed with mother waking the infant by unwrapping/undressing, supporting breast, protecting her nipples with an optimal deep latch, and good positioning. Encouraged understanding the benefits of skin to skin, responding to feeding cues, frequencies of feeding 8-12 times in 24 hours (approximately 2-3 hours), duration of feedings, milk production, intake/output feeding sheet and signs of adequate intake encouraging swallowing at the breast. Reviewed positioning and alignment, supporting breast, off-centered (asymmetrical latch) and leading with the chin with big, open, wide gape. latched optimally to the [right] breast in [cradle] position. Education given to the mother of how to visualize the suckling (with good rocking jaw motion) swallows (dropping of the lower jaw) and how to listen for drinking at the breast (the ka sound). The infant was [able] to maintain latch without discomfort to mother. Mother voiced understanding of the education shared, to call for assistance if the does not latch or if there is discomfort with . Reported to the Primary RN. 1530. Mother attempting to latch baby to the R breast in football hold, requesting assistance after multiple attempts. Reviewed proper alignment and allowing infant a few seconds to allow the ability to start suckling after she opens wide and is guided onto breast. Infant latched optimally to the R breast in football hold, and maintained a deep latch during visit. No pain or discomfort reported. Mother encouraged to call for assistance if needed again.
[2023-11-23] MEDS: LIDOCAINE 5% PATCH 1 PATCH TRANSDERM (16:49)
--- NOTE | 2023-11-23 19:36 | PC.NURSE ---
Patient states that she did experience some blurry vision last night, but it has now resolved. States that she told Jakob Damian this AM. No new orders noted.
[2023-11-23 23:20] LABS: Basophils Percent Auto 0.4 % (0.2-1.2); Eosinophils Absolute Auto 0.2 K/mm3 (0-0.3); Eosinophils Percent Auto 2.2 % (0-4.4); Hematocrit 30.9 % (37.0-47.0); Hemoglobin 10.5 g/dL (12.0-15.0); Immature Granulocyte Absolute 0.11 K/mm3 (0.00-0.031); Immature Granulocyte Percent A 1.5 % (0-0.5); Lymphocytes Percent Auto 19.8 % (18.3-44.2); Mean Corpuscular Hemoglobin 30.8 pg (26-34); Mean Corpuscular Volume 90.6 fl (80-100); Monocytes Absolute Auto 0.5 K/mm3 (0.1-0.6); Monocytes Percent Auto 6.6 % (2.6-8.5); Neutrophils Absolute Auto 5.3 K/mm3 (1.3-6.7); Neutrophils Percent Auto 69.5 % (45.5-73.1); Platelet Count Result 152 k/mm3 (150-375); Red Blood Count 3.41 M/mm3 (4.2-5.4); White Blood Count 7.6 K/mm3 (4.5-10.0)
[2023-11-23 23:34] LABS: Alanine Aminotransferase 15 U/L (6-35); Albumin Level 3.4 g/dL (3.5-5.1); Alkaline Phosphatase 80 U/L (38-126); Anion Gap 6 mmol/L (4-12); Aspartate Amino Transferase 20 U/L (14-36); Bilirubin,Total 0.4 mg/dL (0.2-1.3); Blood Urea Nitrogen 13 mg/dL (7-17); Calcium 8.7 mg/dL (8.4-10.2); Carbon Dioxide 23 mmol/L (22-30); Chloride 109 mmol/L (98-107); Estimated CRCL calculation 76 ml/min; Estimated Glomerular Filt Rate > 60; Glucose 98 mg/dL (65-110); Potassium 3.6 mmol/L (3.4-5.0); Sodium 138 mmol/L (137-145)
[2023-11-24] VITALS (8 sets, daily range): BP systolic 116–154; BP diastolic 80–107; PULSE 72–82; RESP 16–20; TEMP 36.4–36.9; O2SAT 99–100
[2023-11-24] MEDS: ACETAMINOPHEN 325 MG TABLET 650 MG PO ×4 (04:40→22:20)
[2023-11-24] MEDS: IBUPROFEN 600 MG TABLET PO ×4 (04:40→22:21)
--- NOTE | 2023-11-24 07:16 | PM.OBPNVD ---
OB - PN: Subj Subjective Date/time seen: 11/24/23 07:16 Interval history: reports visual changes but otherwise no PIH sx OB - PN: Obj Data Labs 11/23/23 23:10 11/23/23 23:10 Labs: Laboratory Results - last 24 hr 11/23/23 23:10 WBC 7.6 RBC 3.41 L Hgb 10.5 L Hct 30.9 L MCV 90.6 MCH 30.8 MCHC 34.0 RDW 13.0 Plt Count 152 MPV 11.0 H Immature Gran % (Auto) 1.5 H Neut % (Auto) 69.5 Lymph % (Auto) 19.8 [place] % (Auto) 6.6 Eos % (Auto) 2.2 Baso % (Auto) 0.4 Lymph # (Auto) 1.50 [place] # (Auto) 0.5 Eos # (Auto) 0.2 Baso # (Auto) 0.0 Abs Immat Gran (auto) 0.11 H Absolute Neuts (auto) 5.3 Absolute Nucleated RBC 0.000 Nucleated RBC % 0.0 Sodium 138 Potassium 3.6 Chloride 109 H Carbon Dioxide 23 Anion Gap 6 BUN 13 Creatinine 0.90 Estim Creat Clear Calc 76 Estimated GFR > 60 Glucose 98 Calcium 8.7 Total Bilirubin 0.4 AST 20 ALT 15 Alkaline Phosphatase 80 Total Protein 6.0 L Albumin 3.4 L OB - PN A/P Assessment and Plan (1) Preeclampsia: Code(s): O14.90 - Unspecified pre-eclampsia, unspecified trimester Status: Acute Assessment and Plan: BP increased over last 24 hours Will observe labs ok Plan day: 3 Plan: routine care Time Spent With Patient Time: Total time spent is greater than 50% in coordination of care (as documented) at patient's floor/unit and/or counseling patient: Exam Narrative: inc c/d/i RUQ nt no edema : Bimanual exam- vagina & uterus: other (Uterus firm, nt @U)
[2023-11-24] MEDS: SIMETHICONE 80 MG TAB.CHEW PO ×3 (07:33→16:31)
[2023-11-24] MEDS: DOCUSATE SODIUM 100 MG CAPSULE PO ×2 (10:36→16:31)
[2023-11-24] MEDS: MULTIVIT/MIN/PREN/FOL AC/IRON TABLET 1 TAB PO (10:36)
[2023-11-24] MEDS: LORATADINE 10 MG TABLET PO (11:38)
[2023-11-24] MEDS: HYDROCORTISONE 2.5% CREAM 30 GM TUBE 1 APPLIC TOPICAL ×2 (11:38→20:39)
[2023-11-24] MEDS: LIDOCAINE 5% PATCH 1 PATCH TRANSDERM (16:31)
[2023-11-24] MEDS: HYDROCORTISONE 2.5% CREAM 30 GM TUBE 1 APPLIC (18:19)
[2023-11-25] MEDS: ACETAMINOPHEN 325 MG TABLET 650 MG PO ×2 (04:18→09:32)
[2023-11-25] MEDS: IBUPROFEN 600 MG TABLET PO ×2 (04:19→09:32)
[2023-11-25 04:25] VITALS: BP 127/89
[2023-11-25 07:25] VITALS: BP 120/85; PULSE 76; RESP 18; TEMP 36.3; O2SAT 100
--- NOTE | 2023-11-25 08:50 | PM.OBPNVD ---
OB - PN: Subj Subjective Date/time seen: 11/25/23 08:50 Interval history: reports visual changes but otherwise no PIH sx Patient comments: no complaints baby status: doing well OB - PN: Obj Data Labs 11/23/23 23:10 11/23/23 23:10 OB - PN A/P Assessment and Plan (1) Preeclampsia: Code(s): O14.90 - Unspecified pre-eclampsia, unspecified trimester Status: Acute Assessment and Plan: BP's improved. No symptoms Plan day: 4 Plan: routine care, discharge home and follow up 6 weeks (and 1 week) Time Spent With Patient Time: Total time spent is greater than 50% in coordination of care (as documented) at patient's floor/unit and/or counseling patient: Exam Narrative: inc c./d/i : Bimanual exam- vagina & uterus: other (Uterus firm, nt @U)
[2023-11-25] MEDS: SIMETHICONE 80 MG TAB.CHEW PO (09:31)
[2023-11-25] MEDS: LORATADINE 10 MG TABLET PO (09:32)
[2023-11-25] MEDS: DOCUSATE SODIUM 100 MG CAPSULE PO (09:32)
[2023-11-25] MEDS: MULTIVIT/MIN/PREN/FOL AC/IRON TABLET 1 TAB PO (09:32)
[2023-11-26 09:29] VITALS: BP 135/93; PULSE 99; RESP 18; TEMP 36.9; O2SAT 100
== END 2023-11-25 10:20 | disposition home or self-care (01) | DRG 788 ==
LOC: ANHLDR 11-21 11:58 → ANHOB2 11-21 14:24
PROVIDERS: Advanced Practice Midwife; Admitting Provider Obstetrics & Gynecology Gynecology; PCP Nurse Practitioner Family; Visit Provider Obstetrics & Gynecology Gynecology
PROC: 10D00Z1 Extraction of Products of Conception, Low, Open Approach (ICD-10-PCS; CPT 59514; principal; 2023-11-21 11:15)
DX: O32.1XX0 Maternal care for breech presentation, not applicable or unspecified (principal); O24.420 Gestational diabetes mellitus in childbirth, diet controlled; O14.04 Mild to moderate pre-eclampsia, complicating childbirth; O99.824 Streptococcus B carrier state complicating childbirth; O35.3XX0 Maternal care for (suspected) damage to fetus from viral disease in mother, not applicable or unspecified; Z3A.37 37 weeks gestation of pregnancy; Z37.0 Single live birth
CPT/HCPCS: 36415; 59025; 80053; 82948; 84550; 85025; 85055; 86592; 86703; 86850; 86900; 86901; 88307; A9270; G0432; J0690; J1885; J2274; J2371; J2405; J2590; J7120